=== PATIENT | female | born 1945 | race Asian ===

== ENCOUNTER → 2016-10-29 | Outpatient (CLI) | payer OTHER | LOC: CIMAGING 15:01 | PROVIDERS: ATTEND Internal Medicine | DX: Z12.31 Encounter for screening mammogram for malignant neoplasm of breast (principal) | CPT/HCPCS: G0202 ==

== ENCOUNTER → 2016-11-06 | Outpatient (CLI) | payer OTHER | LOC: FIMAGING 12:14 | PROVIDERS: ATTEND Internal Medicine | DX: Z13.820 Encounter for screening for osteoporosis (principal); M85.80 Other specified disorders of bone density and structure, unspecified site ==